=== PATIENT | male | born 1945 | race Caucasian/White ===

== ENCOUNTER 2016-09-11 19:11 | Emergency (ER) | payer MEDICARE, BC ==
[2016-09-11] MEDS ORDERED: NORMAL SALINE 1,000 ML IV ONE ×2 (19:31→19:39)
[2016-09-11 19:39] LABS: Hematocrit 44.7 % (42.0-52.0); Hemoglobin 15.3 gm/dL (13.5-18.0); Mean Cell Volume 91.4 fl (78-100); Mean Corpuscular Hemoglobin 31.3 pg (27-31); Mean Corpuscular Hgb Conc 34.2 g/dl (32-36); Mean Platelet Volume 9.1 fl (6.0-9.5); Neutrophil # 5.6 K/mm3 (1.3-6.0); Neutrophil % 73.5 % (42-75.0); Platelet Count 175 K/mm3 (150-450); Red Blood Count 4.89 M/mm3 (4.7-6.0); Red Cell Distribution Width 14.4 % (11.5-14.0); White Blood Count 7.7 K/mm3 (4.0-10.5)
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
--- OUTSIDE RECORDS SUMMARY | 2016-09-11 19:41 | XMS REPORT | Continuity of Care Document ---
:1945 Author Organization [facility] ([facility]) Address [address] [place] [address] Phone [phone] Care Team Providers Name Role Phone Yamil Borjas Primary Care Provider [phone] Source Comments This disclosure is being made pursuant to the Care Everywhere program, applicable federal and state laws, and may not contain all informaitonavailable regarding this patient.[facility] ([facility]) Active Allergies and Adverse Reactions Allergen Noted Date Severity Reactions Comments No Known Allergies 12/04/2011 NO REACTION Current Medications Prescription Sig. Disp. Refills Start Date End Date Status quinapril (ACCUPRIL) 40 Take 40 mg by Active mg tablet mouth every evening. LORazepam 1 mg tablet Take 1 mg by Active mouth daily as needed. metFORMIN 500 mg tablet Take 500 mg by Active mouth 2 times daily with meals. escitalopram (LEXAPRO) Take 20 mg by Active 20 mg tablet mouth daily. aspirin 81 mg tablet Take 81 mg by Active mouth daily. warfarin 5 mg tablet Take 5 mg by Active mouth daily. As per INR. CARBAMAZEPINE (TEGRETOL Active PO) furosemide 80 mg tablet 02/02/2016 Active docusate 100 mg capsule Take 100 mg by Active mouth 2 times daily as needed. multivitamin with Take 1 tablet by Active minerals tablet mouth daily. mirabegron (MYRBETRIQ) Take 50 mg by Active 50 mg XR tablet mouth daily. carvedilol 12.5 mg Take 1 tablet 60 tablet 6 08/01/2016 Active tablet (12.5 mg total) by mouth 2 times daily. Active Problems Problem Noted Date Abnormal nuclear stress test 08/01/2016 Preoperative cardiovascular examination 07/31/2016 Cardiac pacemaker in situ 05/23/2015 LBBB (left bundle branch block) / alternating BBB on Holter monitor 05/23 MIKA on CPAP 05/23/2015 Spinal stenosis 05/23/2015 Depression with anxiety 05/23/2015 DJD (degenerative joint disease) 05/23/2015 Trigeminal neuralgia 05/23/2015 Congestive heart failure 05/23/2015 Overview: Formatting of this note may be different from the original. 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 suspect diasytolic dysfunction) - 12/18/2000 ECHO/MUGA: JAVIER (EF.70, Normal Valves, Mild LAE, technical difficult study due to morbid obesity.) - 07/17/2007 Echo (Mild LAE, Mild MR, Mild TR, moderate concentric left ventricular hypertrophy. normal LV systolic function) - 02/21/2003 Echo (Normal EF, Normal Valves, TDS, LAE) - 07/17/2007 Echo (EF.55, Mild MR, Mild TR, Moderate DAVINA, Moderate LVH, RVSP 40-50mmHg, Moderate RV dilated) - 04/24/2010 ELECTROPHYSIOLOGY: Holter (Atrial Fib, rate controlled) - 02/27/2010 Holter (Atrial fibrillation throughout. Several near 3 second pauses noted during sleeping times (confirmed by ). Alternating BBB noted on 2 separate occasions.) - 05/08/2011 Devices (Bi-Ventricular PPM ([place])) - 05/18/2012 STRESS TESTS: Pers MPI (EF.48, symmetric cardiac wall motion, but there appears mild diffuse hypokinesis. no evidence for fixed or reversible ischemia) - 02/02/2007 MPI: [place]. EF 53%. Distal segment of anteroseptal wall and apical segment with ischemia. 07/17/2016 Benign essential HTN 05/23/2014 HLD (hyperlipidemia) 02/01/2014 Chronic atrial fibrillation with slow ventricular response Morbid obesity Resolved Problems Problem Noted Date Resolved Date Urge incontinence 09/16/2012 11/16/2014 Most Recent Encounters Date Type Specialty Providers Description 08/01/2016 Office Visit Heart and Vascular Yaima Lawrence MD Chief Comp: Patient Reported Reason For Visit 08/01/2016 Office Visit Heart and Vascular Yaima Lawrence MD Dx: Abnormal nuclear stress test (Primary Dx) 07/17/2016 Telephone Cardiac Rehabilitation Yaima Lawrence MD Chief Comp: Patient Concern Social History Tobacco Use Types Packs/Day Years Used Date Former Smoker Cigarettes Quit: 10/03/1994 Smokeless Tobacco: Never Used Tobacco Cessation:Counseling Given: Yes Comments: Alcohol Use Drinks/Week oz/Week Comments Yes Rare social alcohol use. Last Filed Vital Signs Vital Sign Reading Time Taken Blood Pressure 142/80 08/01/2016 12:23 PM CDT Pulse 80 08/01/2016 12:23 PM CDT Temperature 36.4 C (97.5 F) 02/12/2013 12:51 PM CDT Respiratory Rate 18 02/20/2016 11:29 AM CDT Height 1.829 m (6') 08/01/2016 12:23 PM CDT Weight 145.151 kg (320 lb) 08/01/2016 12:23 PM CDT Body Mass Index 43.39 08/01/2016 12:23 PM CDT Oxygen Saturation 96% 02/12/2013 12:51 PM CDT Plan of Care Date Type Specialty Providers Description 11/12/2016 Appointment Heart and Vascular Yaima Lawrence MD Chief Comp: Patient [address] [address] Visit [phone] (Fax) 12/03/2016 Appointment Heart and Vascular Arlene Mario ARNP Chief Comp: Patient [id number] [place] [address] Visit [phone] (Fax) 03/04/2017 Appointment Heart and Vascular Ochoa Lawrence MD [address] [place] [address] [phone] (Fax) Chief Comp: Patient Yaima Lawrence MD [address] [place] [address] [phone] (Fax) Reported Reason For Visit Health Maintenance Due Date Last Done Comments HCV Screening 1945 Hepatitis B Vaccine (1 of 3 - Primary Series) 1945 Tdap Vaccine 1958 Lipid Disorder Screening 1965 Td Vaccine 1965 Colonoscopy 05/12/1997 Prostate Cancer Screening 1997 Zoster Vaccine 2007 Pneumococcal Vaccine (1 of 2 - PCV13) 2012 Influenza Vaccine: Seasonal (Season Ended) 2016 Results from Last 3 Months Not on file
[2016-09-11 19:49] LABS: Prothrombin Time (Patient) 27.6 Seconds (9.4-11.4)
[2016-09-11 19:55] LABS: INR 2.65 INR (0.90-1.10)
[2016-09-11 19:57] LABS: ALT 27 U/L (19-67); AST 29 U/L (0-48); Albumin * 4.1 gm/dl (3.4-5.0); Alkaline Phosphatase * 101 U/L (50-170); Amylase * 31 U/L (25-115); Anion Gap 13.6 mmol/L (6.8-13.8); BUN/Creatinine Ratio 22.4 (9.0-21.6); Bilirubin, Total 0.6 mg/dL (0.0-1.1); Blood Urea Nitrogen 24 mg/dL (6-23); Ca. Corrected For Albumin 9.1 mg/dL (8.4-10.2); Calcium * 9.5 mg/dL (7.9-10.9); Carbon Dioxide 31.5 mmol/L (24-32.6); Chloride 104 mmol/L (97-106); Glucose * 127 mg/dL (70-110); Potassium 4.1 mmol/L (3.4-4.6); Sodium 145 mmol/L (132-142); Total Protein 8.4 gm/dL (6.2-8.2)
[2016-09-11 19:58] LABS: Troponin I Less than 0.017 ng/ml (0.00-0.10)
[2016-09-11] MEDS ORDERED: ONDANSETRON HCL/PF 2 MG/ML VIAL ONE (20:12)
[2016-09-11] MEDS ORDERED: ONDANSETRON HCL/PF 2 MG/ML VIAL IV ONE (20:18)
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
[2016-09-12 02:32] VITALS: BP 141/77
== END 2016-09-11 22:26 | disposition home or self-care (01) ==
LOC: ER 19:11
DX: S80.12XA Contusion of left lower leg, initial encounter (principal); X58.XXXA Exposure to other specified factors, initial encounter; Y93.9 Activity, unspecified; Y92.833 Campsite as the place of occurrence of the external cause; Z79.01 Long term (current) use of anticoagulants